=== PATIENT | male | born 1950 | race Two or more races ===

== ENCOUNTER 2024-02-14 09:45 | Outpatient (AMB) | payer MEDICAID, SELFPAY ==
[2024-02-14 09:53] VITALS: BP 133/79; PULSE 73; RESP 18; TEMP 35.6; O2SAT 97; BMI 26.8
--- NOTE | 2024-02-14 09:53 | PD.GSCLVISIT ---
Vital Signs - [facility] 02/14/24 09:53 Height 1.7 m Height Method Stated Weight 77.621 kg Weight Measurement Method Standing Scale BMI 26.8 BP 133/79 H Blood Pressure Source Automatic Cuff Blood Pressure Location Right Upper Arm Position Sitting Respiration 18 Pulse 73 Pulse Source Monitor Temp 96.0 F L Temp Source Temporal Artery Scan Pulse Oximetry (%) 97 Oxygen Delivery Method Room Air Med/Allergies Allergies & Medications Allergies No Known Allergies Allergy (Verified 02/14/24 09:54) Medication Reconciliation amoxicillin 875 mg-potassium clavulanate 125 mg tablet 1 tab PO BID #6 tabs 01/30/24 [Rx Confirmed 02/14/24] MA Intake Visit Data Collection New Patient or Established: Established Patient (seen at [facility] within 3 years) Reason for Visit:: 2 WEEK POST OP CHOLECYSTECTOMY Pain Present Currently: No Pain scale:: 0 Pain Scale Used: AlvaradoJames/Numerical Communication Skills Instructor Required: Yes PCP or OBGYN visit in last 3 months: Yes Hx Now: No Do You Feel Safe at Home: Yes Authorities Contacted: N/A Smoking Status Smoking Status: Never smoker Immunization / Flu Flu Vaccine in the Last 12 Months: No Flu Vaccine Exclusion Criteria: No Exclusion Criteria Past Medical History Past Medical History NEUROLOGIC: Negative Neurological Disorders, Cerebrovascular Accident, Transient Ischemic Attacks (TIA), Dementia, Alzheimer's Disease, Parkinson's Disease, Brain Tumor, Meningitis, Seizures, Epilepsy, Multiple Sclerosis, Cerebral Palsy, Amyotrophic Lateral Sclerosis (ALS/Kortney Gehrig's), Guillain-York Syndrome, Spina Bifida, Paralysis, Peripheral Neuropathy, Lozoya's Palsy, Subdural Hematoma, Migraine, Head Trauma, Spinal Cord Injury or Traumatic Brain Injury CARDIAC: Negative Cardiac Disorders, Myocardial Infarction, Cardiac Arrhythmia, Atrial Fibrillation, Angina, Heart Murmur, Coronary Artery Disease, Atherosclerotic Heart Disease, Peripheral Vascular Disease, Hypercholesterolemia, Aneurysm, Congestive Heart Failure, Congenital Heart Disease, Valvular Heart Disease, Rheumatic Fever, Cardiomyopathy, Edema, Pericarditis, Cellulitis, Deep Vein Thrombosis, Hypertension, Hypotension or Varicose Veins RESPIRATORY: Negative Chronic Obstructive Pulmonary Disease (COPD), Asthma, Bronchitis, Emphysema, Pneumonia, Pulmonary Fibrosis, Tuberculosis, Pulmonary Embolism, Pulmonary Edema or Sleep Apnea GASTROINTESTINAL: Positive Gastrointestinal Disorders and Diverticulitis; Negative Hepatitis, Cirrhosis, Pancreatitis, Celiac Disease, Gall Bladder Disease, Gastrointestinal Bleed, Esophageal Varices, Monroy's Esophagus, Colitis, Ulcerative Colitis, Diverticulosis, Ulcer, Colorectal Cancer, Irritable Bowel, Crohn's Disease, Obstructive Bowel, Hiatal Hernia, Hemorrhoids, Gastroesophageal Reflux Disease or Obesity GENITOURINARY: Negative Genitourinary Disorders, Renal Disease, Kidney Stones, Polycystic Kidney Disease, Neurogenic Bladder, Inguinal Hernia, Dialysis, Prostate Cancer or Benign Prostatic Hyperplasia REPRODUCTIVE: Negative Breast Cancer, Fibroids, Genital Herpes, Gonorrhea, Syphilis or Testicular Cancer MUSCULOSKELETAL: Negative Muscular Dystrophy, Myasthenia Gravis, Marfan's Syndrome, Bone Cancer, Arthritis, Rheumatoid Arthritis, Osteoporosis, Degenerative Disk Disease, Gout, Scoliosis, Carpal Tunnel Syndrome, Fibromyalgia, Fractures, Degenerative Joint Disease, Osteomyelitis or Poliovirus ENT: Negative Cataracts, Glaucoma, Blind, Retinal Detachment, Macular Degeneration, Ear Infection, Deafness, Head Trauma or Eye Prosthesis ENDOCRINE: Negative Endocrine Disorders, Diabetes Mellitus Type 1, Diabetes Mellitus Type 2, Hypoglycemia, Linda's Syndrome, Bohannon's Disease, Hyperthyroidism, Hypothyroidism, Parathyroid Disease, Pituitary Disease, Systemic Lupus Erythematosus, Syndrome of Inappropriate Antidiuretic Hormone (SIADH), Adrenal Disease or Graves' Disease HEMATOLOGIC: Negative Blood Disorders, Anemia, Leukemia, Hemophilia, Thalassemia, Sickle Cell Disease or Clotting Problems PSYCHO/SOCIAL: Negative Psychiatric Problems, Schizophrenia, Recreational Drug Use, Bipolar Disorder, Depression, Anxiety, Behavior Problems, Self-Mutilation, Attention Deficit Disorder, Attention Deficit Hyperactivity Disorder, Depression, Post Traumatic Stress Disorder or Eating Disorder OTHER HISTORY: Negative Hospitalization, Down Syndrome, Autism, Developmental Delay, Shingles, Falls, Blood Transfusions, Blood Transfusion Reaction, Anesthesia Reactions, Organ Transplant, Chemotherapy, Radiation Therapy, Hyperbaric Therapy, MRSA, VRSA, Vancomycin-Resistant Enterococci, Human Immunodeficiency Virus (HIV), Chicken Pox, Measles, Mumps, Rubella (Upper Sorbian Measles), Pertussis, Clostridium Difficile, Cancer, Breast Cancer, Cervical Cancer, Colorectal Cancer, Lung Cancer, Ovarian Cancer, Prostate Cancer or Testicular Cancer Family History FAMILY HISTORY: Positive Family Cancer (mother breast cancer); Negative Family Psychiatric Problems, Family Respiratory Disorders, Family Cardiac Disorders, Family Gastrointestinal Problems, Family Surgery or Family Anesthesia Reaction Surgical History SURGICAL: Negative Cardiac Surgery, Open Heart Surgery, Coronary Artery Bypass Graft, Valve Replacement, Vascular Surgery, Coronary Stent, Cardiac Catheterization, Pacemaker, Angiogram, Auto Implanted Cardiovert Defib, Carotid Endarterectomy, Endocrine Surgery, Thyroidectomy, Ear Surgery, Tympanostomy Tube, Eye Surgery, Nose Surgery, Oral Surgery, Tonsillectomy, Adenoidectomy, Cochlear Implant, Corneal Transplant, Throat Surgery, Abdominal Surgery, Tracheostomy, Gastric Bypass Surgery, Gastrostomy, Bowel Surgery, Nephrectomy, Transurethral Resection, Joint Replacement, Amputation, Open Reduction Internal Fixation, Arthroscopy, Neurologic Surgery, Brain Shunt, Mastectomy, Lumpectomy, Hysterectomy, Tubal Ligation, Vasectomy or Organ Transplant Social History SMOKING STATUS: Smoking status: Never smoker ALCOHOL: Alcohol Intake: Never HOUSING: Housing: House LIVES WITH: Lives With: Family HPI HPI Narrative 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 Pt reports feeling very well with no pain, no nausea, no fever, he is eating well and having regular BMs without any diarrhea ROS Review of Systems Systems Reviewed: All systems reviewed, normal except as documented Objective/Exam General General Appearance: alert, cooperative and well groomed Resp Respiratory exam: Absent respiratory distress Abdominal Abdominal exam: Present soft and incision (c/d/i, no erythema, no fluctuance or tenderness); Absent distention or tenderness Results Pathology of gallbladder: gangrenous acute and chronic cholecystitis with cholelithiasis Assessment & Plan Diagnosis / Problem List (1) Gangrenous cholecystitis: Status: Acute Assessment & Plan: M s/p sharyn gale 01/27, recovering well. I advised him to avoid lifting objects >10lbs for an additional 4 weeks. All questions were answered Follow up as needed Plan 74 Advanced Care Planning Advance care planning discussed with:: patient Office Procedures GNS Level of Care Nursing/Assessment Patient Status: Established Patient Nursing Assessment/Reassesment: Medication Reconciliation, Update PMH in EMR and Vital Signs Coordination of Care: Complex Care and Chronic Disease 1-5, Education Complex Pt/Fam, Consent,records obtained, informed consent, Results/Orders obtained and Staff clarify orders Special Needs: Language special needs Established Patient Charge Established Patient Point Assignment: 95 Established Patient Point Charge: EP Level 3 (80-115) Patient Portal Questionaires Social History Living Situation History Housing: House Housing Other:: Pt from home, lives with his Tobacco History Smoking Status: Never smoker Alcohol History Alcohol Intake: Never Domestic Abuse History Do You Feel Safe at Home: Yes Review of Systems Report any current symptoms Only answer those that you have currently: Past Medical History Past Medical History Have you ever been diagnosed with any of the following: Neurological Problems Cerebrovascular Accident (CVA): No Transient Ischemic Attacks (TIA): No Dementia: No Alzheimer's Disease: No Parkinson's Disease: No Brain Tumor: No Meningitis: No Seizures: No Epilepsy: No Multiple Sclerosis: No Cerebral Palsy: No Amyotrophic Lateral Sclerosis (ALS/Kortney Gehrig's): No Guillain-York Syndrome: No Spina Bifida: No Paralysis: No Peripheral Neuropathy: No Lozoya's Palsy: No Subdural Hematoma: No Migraine: No Head Trauma: No Spinal Cord Injury: No Traumatic Brain Injury: No Cardiology Problems Myocardial Infarction: No Cardiac Arrhythmia: No Atrial Fibrillation: No Angina: No Heart Murmur: No Coronary Artery Disease: No Atherosclerotic Heart Disease: No Peripheral Vascular Disease: No Hypercholesterolemia: No Aneurysm: No Congestive Heart Failure: No Congenital Heart Disease: No Valvular Heart Disease: No Rheumatic Fever: No Cardiomyopathy: No Edema: No Pericarditis: No Cellulitis: No Deep Vein Thrombosis: No Hypertension: No Hypotension: No Varicose Veins: No Respiratory Problems Chronic Obstructive Pulmonary Disease (COPD): No Asthma: No Bronchitis: No Emphysema: No Pneumonia: No Pulmonary Fibrosis: No Tuberculosis: No Pulmonary Embolism: No Pulmonary Edema: No Sleep Apnea: No Stomache/Intestinal Problems Hepatitis: No Cirrhosis: No Pancreatitis: No Celiac Disease: No Gall Bladder Disease: No Gastrointestinal Bleed: No Esophageal Varices: No Monroy's Esophagus: No Colitis: No Ulcerative Colitis: No Diverticulitis: Yes Diverticulosis: No Ulcer: No Colorectal Cancer: No Irritable Bowel: No Crohn's Disease: No Obstructive Bowel: No Hiatal Hernia: No Hemorrhoids: No Gastroesophageal Reflux Disease: No Obesity: No Genital/Urinary Problems Renal Disease: No Kidney Stones: No Polycystic Kidney Disease: No Neurogenic Bladder: No Inguinal Hernia: No Dialysis: No Prostate Cancer: No Benign Prostatic Hyperplasia: No Reproductive Problems Breast Cancer: No Fibroids: No Genital Herpes: No Gonorrhea: No Syphilis: No Testicular Cancer: No Musculoskeletal Problems Muscular Dystrophy: No Myasthenia Gravis: No Marfan's Syndrome: No Bone Cancer: No Arthritis: No Rheumatoid Arthritis: No Osteoporosis: No Degenerative Disk Disease: No Gout: No Scoliosis: No Carpal Tunnel Syndrome: No Fibromyalgia: No Fractures: No Degenerative Joint Disease: No Osteomyelitis: No Poliovirus: No Head,Eye,Nose,Throat Problems Cataracts: No Glaucoma: No Blind: No Retinal Detachment: No Macular Degeneration: No Chronic Ear Infections: No Deafness: No Eye Prosthesis: No Endocrine Problems Diabetes Mellitus Type 1: No Diabetes Mellitus Type 2: No Hypoglycemia: No Linda's Syndrome: No Bohannon's Disease: No Hyperthyroidism: No Hypothyroidism: No Parathyroid Disease: No Pituitary Disease: No Systemic Lupus Erythematosus: No Syndrome of Inappropriate Antidiuretic Hormone: No Adrenal Disease: No Graves' Disease: No Blood Problems Anemia: No Leukemia: No Hemophilia: No Thalassemia: No Sickle Cell Disease: No Clotting Problems: No Psychologic Problems Schizophrenia: No Recreational Drug Use: No Bipolar Disorder: No Depression: No Anxiety: No Behavior Problems: No Self-Mutilation: No Attention Deficit Disorder: No Attention Deficit Hyperactivity Disorder: No Depression: No Post Traumatic Stress Disorder: No Eating Disorder: No Other Problems Hospitalization: No Down Syndrome: No Autism: No Developmental Delay: No Shingles: No Falls: No Blood Transfusions: No Blood Transfusion Reaction: No Anesthesia Reactions: No Organ Transplant: No Chemotherapy: No Radiation Therapy: No Hyperbaric Therapy: No MRSA: No VRSA: No Vancomycin-Resistant Enterococci: No Human Immunodeficiency Virus (HIV): No Chicken Pox: No Measles: No Mumps: No Rubella (Upper Sorbian Measles): No Pertussis: No Clostridium Difficile: No Cancer: No Cervical Cancer: No Lung Cancer: No Ovarian Cancer: No Surgical History Carotid Endarterectomy: No Coronary Artery Bypass Graft: No Valve Replacement: No Hysterectomy: No Pacemaker: No Thyroidectomy: No
== END 2024-02-14 10:02 | disposition home or self-care (01) ==
LOC: HODSRG 09:45
PROVIDERS: Supervising Provider Surgery; Visit Provider Surgery
DX: Z48.815 Encounter for surgical aftercare following surgery on the digestive system (principal)
CPT/HCPCS: 99213; G0463

== ENCOUNTER 2024-03-01 19:04 | Emergency (ER) | payer MEDICAID, SELFPAY ==
[2024-03-01 19:20] VITALS: BP 147/83; PULSE 82; RESP 16; TEMP 36.9; O2SAT 97
--- NOTE | 2024-03-01 19:26 | XR_ITS ---
Examination: Fingers, left hand third digit 3 views Technique: AP, oblique, lateral views left hand third digit 3 views. Exam date and time: March 01, 2024 1947 hrs. Indications: Injury to the hand today with third digit pain. Findings: Acute comminuted displaced fractures distal aspect distal phalanx third digit 1 mm foreign body in the soft tissue palmar to the distal phalanx Impression: Acute comminuted fracture distal phalanx third digit
--- NOTE | 2024-03-01 19:26 | PD.EDRME ---
Rapid Medical Screening Exam RME Arrival date/time: 03/01/24 19:04 74 year old male present to ED for c/o of crush injury today I have greeted and performed a focused initial assessment of this patient. A comprehensive ED assessment and evaluation of the patient, analysis of all test results, and completion of the medical decision making process will be conducted by additional ED providers. Chief Complaint: Hand/Wrist Problems Time Seen by Provider: 03/01/24 19:15 Vital signs: Vital Signs Temperature 98.4 F 03/01/24 19:20 Pulse Rate 82 03/01/24 19:20 Respiratory Rate 16 03/01/24 19:20 Blood Pressure 147/83 H 03/01/24 19:20 Pulse Oximetry (%) 97 03/01/24 19:20 Oxygen Delivery Method Room Air 03/01/24 19:20
[2024-03-01] MEDS: HYDROcodone/APAP 5/325 TABLET 1 TAB PO (19:42)
[2024-03-01] MEDS: ONDANSETRON ODT 4 MG TABRAP PO (19:42)
[2024-03-01] MEDS: TETANUS,DIPHTHERIA TOXOIDS/PF (ADULT) 0.5 ML SYRINGE IMi (19:42)
[2024-03-01 22:07] VITALS: BP 119/75; PULSE 65; RESP 20; TEMP 36.8; O2SAT 95
--- NOTE | 2024-03-01 23:59 | PD.EDHAND ---
Upper Extremity Injury RME/HPI General Chief Complaint: Hand/Wrist Problems Stated Complaint: SMASHED/CUT LEFT MIDDLE FINGER Time Seen by Provider: 03/01/24 19:15 Source: patient and family Arrival date/time: 03/01/24 19:04 Mode of arrival: ambulatory Limitations: no limitations RME / HPI RME / HPI narrative: 03/01/24 19:04 74 year old male present to ED for c/o of crush injury today I have greeted and performed a focused initial assessment of this patient. A comprehensive ED assessment and evaluation of the patient, analysis of all test results, and completion of the medical decision making process will be conducted by additional ED providers. DR LEVINE MAIN ED EVALUATION: 74-year-old male presents to the ED for c/o injury to his right finger after he accidentally smashed it in a logging machine. He reports bleeding, redness and an open wound. Due to worsening pain, he presents to ED for further evaluation. Denies loss of function. Denies any other medical complaints or associated symptoms. Related Data Previous Rx's ?Medication ?Instructions ?Recorded amoxicillin 875 mg-potassium 1 tab PO BID #6 tabs 01/30/24 clavulanate 125 mg tablet amoxicillin 875 mg-potassium 1 tab PO BID #10 tabs 03/02/24 clavulanate 125 mg tablet doxycycline monohydrate 100 mg 100 mg PO BID #10 caps 03/02/24 capsule Allergies Allergy/AdvReac Type Severity Reaction Status Date / Time No Known Allergies Allergy Verified 03/01/24 19:07 Review of Systems Review of Systems Systems Reviewed: All systems reviewed, normal except as documented Past Medical History Past Medical History NEUROLOGIC: Negative Neurological Disorders, Cerebrovascular Accident, Transient Ischemic Attacks (TIA), Dementia, Alzheimer's Disease, Parkinson's Disease, Brain Tumor, Meningitis, Seizures, Epilepsy, Multiple Sclerosis, Cerebral Palsy, Amyotrophic Lateral Sclerosis (ALS/Kortney Gehrig's), Guillain-Sparta Syndrome, Spina Bifida, Paralysis, Peripheral Neuropathy, Lozoya's Palsy, Subdural Hematoma, Migraine, Head Trauma, Spinal Cord Injury or Traumatic Brain Injury CARDIAC: Negative Cardiac Disorders, Myocardial Infarction, Cardiac Arrhythmia, Atrial Fibrillation, Angina, Heart Murmur, Coronary Artery Disease, Atherosclerotic Heart Disease, Peripheral Vascular Disease, Hypercholesterolemia, Aneurysm, Congestive Heart Failure, Congenital Heart Disease, Valvular Heart Disease, Rheumatic Fever, Cardiomyopathy, Edema, Pericarditis, Cellulitis, Deep Vein Thrombosis, Hypertension, Hypotension or Varicose Veins RESPIRATORY: Negative Chronic Obstructive Pulmonary Disease (COPD), Asthma, Bronchitis, Emphysema, Pneumonia, Pulmonary Fibrosis, Tuberculosis, Pulmonary Embolism, Pulmonary Edema or Sleep Apnea GASTROINTESTINAL: Positive Gastrointestinal Disorders and Diverticulitis; Negative Hepatitis, Cirrhosis, Pancreatitis, Celiac Disease, Gall Bladder Disease, Gastrointestinal Bleed, Esophageal Varices, Monroy's Esophagus, Colitis, Ulcerative Colitis, Diverticulosis, Ulcer, Colorectal Cancer, Irritable Bowel, Crohn's Disease, Obstructive Bowel, Hiatal Hernia, Hemorrhoids, Gastroesophageal Reflux Disease or Obesity GENITOURINARY: Negative Genitourinary Disorders, Renal Disease, Kidney Stones, Polycystic Kidney Disease, Neurogenic Bladder, Inguinal Hernia, Dialysis, Prostate Cancer or Benign Prostatic Hyperplasia REPRODUCTIVE: Negative Breast Cancer, Fibroids, Genital Herpes, Gonorrhea, Syphilis or Testicular Cancer MUSCULOSKELETAL: Negative Musculoskeletal Disorders, Muscular Dystrophy, Myasthenia Gravis, Marfan's Syndrome, Bone Cancer, Arthritis, Rheumatoid Arthritis, Osteoporosis, Degenerative Disk Disease, Gout, Scoliosis, Carpal Tunnel Syndrome, Fibromyalgia, Fractures, Degenerative Joint Disease, Osteomyelitis or Poliovirus ENT: Negative Cataracts, Glaucoma, Blind, Retinal Detachment, Macular Degeneration, Ear Infection, Deafness, Head Trauma or Eye Prosthesis ENDOCRINE: Negative Endocrine Disorders, Diabetes Mellitus Type 1, Diabetes Mellitus Type 2, Hypoglycemia, Linda's Syndrome, Addi's Disease, Hyperthyroidism, Hypothyroidism, Parathyroid Disease, Pituitary Disease, Systemic Lupus Erythematosus, Syndrome of Inappropriate Antidiuretic Hormone (SIADH), Adrenal Disease or Graves' Disease HEMATOLOGIC: Negative Blood Disorders, Anemia, Leukemia, Hemophilia, Thalassemia, Sickle Cell Disease or Clotting Problems PSYCHO/SOCIAL: Negative Psychiatric Problems, Schizophrenia, Recreational Drug Use, Bipolar Disorder, Depression, Anxiety, Behavior Problems, Self-Mutilation, Attention Deficit Disorder, Attention Deficit Hyperactivity Disorder, Depression, Post Traumatic Stress Disorder or Eating Disorder OTHER HISTORY: Negative Hospitalization, Autoimmune Disease, Down Syndrome, Autism, Developmental Delay, Shingles, Falls, Blood Transfusions, Blood Transfusion Reaction, Anesthesia Reactions, Organ Transplant, Chemotherapy, Radiation Therapy, Hyperbaric Therapy, MRSA, VRSA, Vancomycin-Resistant Enterococci, Human Immunodeficiency Virus (HIV), Chicken Pox, Measles, Mumps, Rubella (Bruneian Measles), Pertussis, Clostridium Difficile, Cancer, Breast Cancer, Cervical Cancer, Colorectal Cancer, Lung Cancer, Ovarian Cancer, Prostate Cancer or Testicular Cancer Family History FAMILY HISTORY: Positive Family Cancer; Negative Family Psychiatric Problems, Family Respiratory Disorders, Family Cardiac Disorders, Family Gastrointestinal Problems, Family Surgery or Family Anesthesia Reaction Surgical History SURGICAL: Negative Cardiac Surgery, Open Heart Surgery, Coronary Artery Bypass Graft, Valve Replacement, Vascular Surgery, Coronary Stent, Cardiac Catheterization, Pacemaker, Angiogram, Auto Implanted Cardiovert Defib, Carotid Endarterectomy, Endocrine Surgery, Thyroidectomy, Ear Surgery, Tympanostomy Tube, Eye Surgery, Nose Surgery, Oral Surgery, Tonsillectomy, Adenoidectomy, Cochlear Implant, Corneal Transplant, Throat Surgery, Abdominal Surgery, Tracheostomy, Gastric Bypass Surgery, Gastrostomy, Bowel Surgery, Nephrectomy, Transurethral Resection, Joint Replacement, Amputation, Open Reduction Internal Fixation, Arthroscopy, Neurologic Surgery, Brain Shunt, Mastectomy, Lumpectomy, Hysterectomy, Tubal Ligation, Vasectomy or Organ Transplant Social History SMOKING STATUS: Never smoker SUBSTANCE USE: does not use ED Exam Narrative Physical exam: GENERAL APPEARANCE: alert and oriented x 4, well-developed, well-nourished, no acute distress VITALS: All vitals were reviewed and the pulse ox is 95% on room air, which is normal according to my interpretation. HEENT: Normocephalic, atraumatic; pupils equal, round, reactive to light; EOMI; mucous membranes pink, moist; oropharynx clear NECK: Supple LUNGS: CTABL; no wheezes, no rales, no rhonchi HEART: Regular rate, regular rhythm; normal S1, S2; no murmurs ABDOMEN: non distended; normal BS; soft, no tenderness, no guarding, no rebound; no masses, no organomegaly, no hernia BACK: no CVA tenderness EXTREMITIES: left third finger open fracture, L shaped laceration, 1.5x3cm, irregular borders, deep NEUROLOGIC: awake; alert and oriented x4; cranial nerves II-XII grossly intact; no focal sensory or motor deficits PSYCHIATRIC: appropriate mood and affect SKIN: warm, dry, normal color; no rashes General Limitations: Present no limitations Course Quality Measures none Orders Category Date Time Status XR finger LT min 2V Stat Exams 03/01/24 19:26 Completed HYDROcodone*/APAP 5/325 [Nunda 5/325] Med 03/01/24 19:26 Discontinued 1 tab PO X1 ONE Lidocaine 1% 20 ml [Xylocaine 1% 20 ML] Med 03/02/24 00:42 Discontinued 20 ml INFL X1 ONE Ondansetron Odt [Zofran Odt] Med 03/01/24 19:26 Discontinued 4 mg PO X1 ONE Tetanus, Diphtheria Toxoids/Pf [Tenivac-Adult] Med 03/01/24 19:26 Discontinued 0.5 ml IMI .ONCE ONE Vital Signs Vital signs: Vital Signs Temperature 98.4 F 03/01/24 19:20 Pulse Rate 82 03/01/24 19:20 Respiratory Rate 16 03/01/24 19:20 Blood Pressure 147/83 H 03/01/24 19:20 Pulse Oximetry (%) 97 03/01/24 19:20 Oxygen Delivery Method Room Air 03/01/24 19:20 Extremity Injury MDM Narrative MDM Narrative:: Scribe Attestation: I, Alex Moulton, am scribing for and in the presence of Dr. Levine. Provider Notation: Although this document has been carefully reviewed, there may still be some phonetic and other typographical errors. These errors are purely grammatical due to imperfections in the software program and should not be construed in any way to compromise the substance of the patient's medical care during this visit. Patient data External records reviewed:: [facility] previous records Clinical information provided by:: patient and family Social determinants that could affect healthcare access:: none Patient has the following chronic illnesses:: Diverticulitis How is presenting disease/condition affected by chronic disease/condition?: uneffected by Evaluation data The following diagnostics were reviewed and interpreted by me:: radiology exam(s) Lab and/or radiology exams considered but not ordered:: Considered lab work Interpretation Summary: I personally reviewed and interpreted a Fingers, left hand third digit 3 views on this patient. Films were reviewed. I agree with the radiologist's interpretation. Examination: Fingers, left hand third digit 3 views Exam date and time: March 01, 2024 1947 hrs. Indications: Injury to the hand today with third digit pain. Findings: Acute comminuted displaced fractures distal aspect distal phalanx third digit 1 mm foreign body in the soft tissue palmar to the distal phalanx Impression: Acute comminuted fracture distal phalanx third digit Dictated By: Bo Vaughn MD Medications / Prescriptions Medications or Prescriptions considered but not ordered:: None Medication administrations:: Medication Administration History Discontinued Medications Hydrocodone Bitart/Acetaminophen (Hydrocodone/Apap 5/325 Tablet) 1 tab PO X1 ONE Stop: 03/01/24 19:27 Last Admin: 03/01/24 19:42 Dose: 1 tab Documented By: Lidocaine HCl (Lidocaine Hcl 1% 20 Ml Vial) 20 ml INFL X1 ONE Stop: 03/02/24 00:43 Last Admin: 03/02/24 01:30 Dose: 5 ml Documented By: SE Ondansetron HCl (Ondansetron Odt 4 Mg Tabrap) 4 mg PO X1 ONE; Protocol Stop: 03/01/24 19:27 Last Admin: 03/01/24 19:42 Dose: 4 mg Documented By: Tetanus/Diphtheria Toxoids (Tetanus,Diphtheria Toxoids/Pf (Adult) 0.5 Ml Syringe) 0.5 ml IMi .ONCE ONE Stop: 03/01/24 19:27 Last Admin: 03/01/24 19:42 Dose: 0.5 ml Documented By: As above Consultations Consultation(s) initiated? (list below): Yes Consultation #1 (Physician, Specialty, Details): Dr. Winters, orthopedic surgeon, made aware of the patient?s HPI, PMHx, lab and/or radiology results. He is on his way here for consultation. Time: 00:46 Consultation #2 (Physician, Specialty, Details): Stable for discharge and outpatient management in his office per Dr. Winters Time: 02:46 Diagnosis Upper Extremity Injury Differential Diagnosis: sprain and strain of wrist, finger sprain, dislocation of finger and fracture of hand Most likely diagnosis given after review of the tests above:: Laceration of finger of left hand, Open comminuted fracture of distal phalanx of finger Admission Indicated Admission indicated?: not indicated Admission Request Was there a request for admission?: No Disposition Plan Disposition Plan: Discharge Discharge Attestation Discharge Attestation: The patient and all family members were given an opportunity to ask questions and understood the discharge instructions. Discharge instructions specifically effects, indications for sooner follow up or return to the emergency department, and the expected course of current diagnosis. Patient condition: Stable Discharge Plan Plan Patient Disposition: HOME (Self Care) Prescriptions/Referrals Prescriptions/Med Rec: New amoxicillin-pot clavulanate 875-125 mg tablet 1 tab PO BID Qty: 10 0RF doxycycline monohydrate 100 mg capsule 100 mg PO BID Qty: 10 0RF No Action amoxicillin-pot clavulanate 875-125 mg tablet 1 tab PO BID Qty: 6 0RF Referrals: No Primary/Family,Physician [Primary Care Provider] - In 1 week Kingsley Winters MD [Physician] - 03/03/24 Problem List Clinical Impression: Laceration of finger of left hand, Open comminuted fracture of distal phalanx of finger Patient/Caregiver Discharge Instructions Education Materials: ED Fracture, Finger, Open, ED Laceration: All Closures Additional Instructions: Follow-up with Dr. Winters on 03/03/2024. Call the office on Sunday at 930am for appointment time. Print Language: Frisian Stand Alone Forms: Dianne Award Info., Patient Portal Info Letter
--- NOTE | 2024-03-02 00:52 | PC.NURSE ---
DR. MORAN AT BEDSIDE TO SEE PT.
[2024-03-02] MEDS: LIDOCAINE HCL 1% 20 ML VIAL INFL (01:30)
[2024-03-02 02:25] VITALS: BP 117/81; PULSE 75; RESP 18; O2SAT 96
--- NOTE | 2024-03-03 14:45 | ESCONSULT_ITS ---
RE: SOO NUÑEZ : 1950 DATE OF CONSULTATION: 03/02/2024 CHIEF COMPLAINT: Pain in left long finger. 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 He caught his left long finger in the log splitter. He had an open fracture of the distal phalanx of the left long finger. No other complaints. PAST MEDICAL HISTORY: Reviewed. SOCIAL HISTORY: He is with seven children. PAST SURGICAL HISTORY: Hernia surgery, gallbladder surgery. ALLERGIES: NONE. MEDICATIONS: 1. Augmentin. 2. Doxycycline. MAJOR MEDICAL ILLNESSES: Cholelithiasis. No other major medical history. FAMILY HISTORY: Unremarkable. REVIEW OF SYSTEMS: Completely negative. PHYSICAL EXAMINATION: Shows a laceration ulnar dorsal aspect of left long finger. LABORATORY DATA: X-ray showed distal phalangeal fracture. Nail is still present. ASSESSMENT: Open fracture of distal phalanx, left long finger. PLAN: Irrigation of left long finger and repair of laceration. The patient received 2 grams of IV Ancef. He is going to be sent out on Augmentin and doxycycline. DT: 12:40:55 TT: 14:44:00 Ref: [id number] - TID: [id number]
--- NOTE | 2024-03-04 13:34 | ESOP_ITS ---
RE: SOO NUÑEZ : 1950 DATE OF OPERATION: 03/02/2024 PREOPERATIVE DIAGNOSIS: Open fracture of distal phalange, left long finger involving the dorsal ulnar skin. POSTOPERATIVE DIAGNOSIS: Open fracture of distal phalange, left long finger involving the dorsal ulnar skin. PROCEDURE PERFORMED: Open treatment of left long finger distal phalanx open fracture. DESCRIPTION OF PROCEDURE: The patient was seen and the wound was inspected. A digital nerve block was carried out using 10 mL of 1% lidocaine without epinephrine. After satisfactory anesthesia was present, the distal phalange open fracture was copiously irrigated with saline solution. After this was done, the wound was closed with interrupted 5-0 nylon suture using one suture. This coapted the wound very nicely. The wound was then dressed with bacitracin, Xeroform gauze, followed by a bulky dressing secured with an AlumaFoam splint. He was told to go home and keep it up and elevated and that we would see him on Sunday for a dressing change. The patient received IV Ancef and was sent out on Augmentin and doxycycline. I told him there is a risk of infection. The procedure and the risks were explained to the patient in Romansh. DT: 12:44:02 TT: 21:12:00 Ref: [id number] - TID: [id number]
== END 2024-03-02 02:27 | disposition home or self-care (01) ==
PROVIDERS: Emergency Provider Emergency Medicine
DX: S62.633B Displaced fracture of distal phalanx of left middle finger, initial encounter for open fracture (principal); W31.89XA Contact with other specified machinery, initial encounter; Z23 Encounter for immunization
CPT/HCPCS: 12002; 73140; 90471; 90714; 99283; J3490; Q0162; A9270